=== PATIENT | female | born 1970 | race Caucasian/White ===

== ENCOUNTER 2017-02-12 01:10 | Emergency (ER) | payer OTHER ==
--- NOTE | 2017-02-12 04:11 | ED NURSING NOTES ---
Clinical Report - Nurses [facility] [address] [place] [address] 02/12/2017 1:11 Patient: RAFY MAYERS TRIAGE Triage time 01:19. Acuity: LEVEL 2. Chief Complaint: SORE THROAT, CHEST PAIN and NECK PAIN. Alert. SEPSIS SCREEN: Sepsis Screen. Negative (no infection suspected/documented). ASHKAN COMA SCORE: [place] Coma Scale: 15- eyes open spontaneously (4); best verbal response- oriented x 4 (5); best motor response- obeys commands (6). --01:28 Gurdeep Garcia R.N. 01:17 02/12/17. BP: 160/91. HR: 87. RR: 16. O2 saturation: 100% on room air. Temp: 98.2 F. Pain level now: 10/15. --01:28 Gurdeep Garcia R.N. Weight: 67.1 kg stated. Height/Length: 66 inches Per Patient. BMI: 23.9. --01:25 Gurdeep Garcia R.N. Medications None. --01:23 Gurdeep Garcia R.N. Medication/allergy information source: the patient. --01:28 Gurdeep Garcia R.N. Allergies Codeine. Penicillin. --01:23 Gurdeep Garcia R.N. History Arrived by private vehicle. Historian: patient. Unaccompanied. Primary physician (None). Onset. (Chest pain started 2 night ago, sore throat 1 1/2 weeks ago). ( Patient reports her chest hurt when she went to bed about 24 hrs ago, that still hurt when she woke up that about noon yesterday she took a friends NTG and the pain improved she went back to bed and when she got up 3-4 hrs later the pain had returned). PAST MEDICAL HX: Immunizations: up-to-date. The patient has had a hysterectomy. SOCIAL HX: Current every day light tobacco smoker- less than 1/2 a pack per day. Alcohol use; consumes three liquor weekly. History of occasional drug use: marijuana. No infectious disease exposure. ABUSE ASSESSMENT: No report of abuse. FALL RISK ASSESSMENT: Fall risk assessment completed. No fall risk identified. NUTRITIONAL RISK ASSESSMENT: The nutritional risk assessment revealed no deficiencies. FUNCTIONAL ASSESSMENT: Functional assessment: no impairments noted. LEARNING NEEDS ASSESSMENT: The learning needs assessment revealed no barriers. SKIN INTEGRITY ASSESSMENT: Skin integrity risk assessment completed. No skin integrity risk identified. --01:28 Gurdeep Garcia R.N. PROBLEMS: Corneal Ulcer. Pyelonephritis. TIA - Transient Ischemic Attack. Mental Illness. Suicide Attempt. Suicidal Ideation. Anxiety Reaction. UTI - Urinary Tract Infection. --01:23 Gurdeep Garcia R.N. ADDITIONAL SURGERIES: Appendectomy. Hysterectomy. --01:23 Gurdeep Garcia R.N. Interventions ID band on patient. To treatment room. --01:28 Gurdeep Garcia R.N. PHYSICAL ASSESSMENT 01:21. Ambulatory to room. Patient gowned. GENERAL / NEURO / PSYCH: Alert. Oriented X 4. HEENT: No facial asymmetry noted. Mucous membranes are pink. RESPIRATORY: Respirations not labored. SKIN: Skin intact. Skin is warm and dry. Normal skin turgor. --01:21 Gurdepe Garcia R.N. NURSING PROGRESS NOTES 01:21. Head of bed elevated. Two patient identifiers checked. Call light placed in reach. Bed placed in lowest position. Brakes of bed on. Patient ready for evaluation- chart flagged. --01:21 Gurdeep Garcia R.N. 01:22. EKG time: (0122). --01:22 Gurdeep Garcia R.N. EKG was performed by a tech and shown to the ED physician. --01:22 Gurdeep Garcia R.N. 01:26. electronic device monitor, pulse oximeter and NIBP monitor placed on patient; monitor alarms on. --01:29 Gurdeep Garcia R.N. 01:30 02/12/2017 Aspirin PO 325 mg given. Allergies verified and confirmed 5 rights. --01:32 Gurdeep Garcia R.N. 01:33 02/12/2017 One (1) unsuccessful IV access attempt including the right wrist (by Viviane EDRN). --01:54 Gurdeep Garcia R.N. 01:45 02/12/2017 Site #1 started via IV in the right wrist with an 22g angiocath, with aseptic technique and good blood return; one attempt. Blood drawn: rainbow set. Labeled in the presence of the patient and sent to the lab. Saline lock flushed with 10 mL saline. --01:53 Gurdeep Garcia R.N. Cardiac rhythm: normal sinus rhythm. The patient is calm and resting quietly. RESPIRATORY: No respiratory distress. SKIN: Skin is warm and dry. Skin color within normal limits. --02:53 Gurdeep Garcia R.N. 02:52 02/12/17. BP: 139/71. HR: 85. RR: 16. O2 saturation: 100% on room air. --02:53 Gurdeep Garcia R.N. Cardiac rhythm: normal sinus rhythm. The patient is calm and resting quietly. RESPIRATORY: No respiratory distress. SKIN: Skin is warm and dry. Skin color within normal limits. --03:58 Gurdeep Garcia R.N. 03:57 02/12/17. BP: 137/81. HR: 80. RR: 15. O2 saturation: 97% on room air. --03:58 Gurdeep Garcia R.N. 04:25. The patient is calm and resting quietly. RESPIRATORY: No respiratory distress. SKIN: Skin is warm and dry. Skin color within normal limits. --04:31 Gurdeep Garcia R.N. DISPOSITION / DISCHARGE 04:24 02/12/2017 Site #1 removed upon discharge. Catheter intact. Bandage applied. --04:26 Gurdeep Garcia R.N. Departure time: 04:29. Condition at departure: stable. No learning barriers present. Discharge instructions provided and reviewed with the patient. Reviewed medication(s) side effects, precautions, dosing and course information. Prescription(s) given to the patient. Patient verbalized understanding. Written instructions provided in Chinese. The patient was discharged home. She left the Emergency Department ambulatory and via private vehicle. FALL RISK ASSESSMENT: Fall risk assessment completed. No fall risk identified. --04:29 Gurdeep Garcia R.N. 04:19 07/08/17. BP: 137/83. HR: 83. RR: 15. O2 saturation: 100% on room air. --04:29 Gurdeep Garcia R.N. Locked/Released at 02/12/2017 4:32 by Gurdeep Garcia R.N.
--- NOTE | 2017-02-12 04:11 | ED ORDER SUMMARY ---
..... Patient: RAFY MAYERS OrderSheet [facility] VisitID: [id number] [place] [address] 46y, F Registration Date/Time: 02/12/2017 ORDER SHEET Weight: 67.1 kg (stated) Allergies: Codeine, Penicillin GENERAL ORDERS: Motorman/Woman (Continuous) (CP) (01:30 02/12/2017 JQuivey R.N. per protocol) (1:32 JQuivey R.N.) Cardiac Panel Stat (:02/12/2017 JQuivey R.N. per protocol) (Ack 1:50 CHagerty ER Logistics Operations Manager) (1:53 JQuivey R.N.) EKG - ER Stat (:02/12/2017 JQuivey R.N. per protocol) (1:32 JQuivey R.N.) Pulse oximeter (:02/12/2017 JQuivey R.N. per protocol) (1:32 JQuivey R.N.) Culture, Strep Screen Urgent (02:11 02/12/2017 Eamni Blank) (2:14 CHagerty ER Logistics Operations Manager) MEDICATION ORDERS: Aspirin PO 325 mg (NOW) (01:31 02/12/2017 JQuivey R.N. per protocol) (1:32 JQuivey R.N.) IV FLUIDS: IV Saline Lock (:02/12/2017 JQuivey R.N. per protocol) (1:53 JQuivey R.N.) ORDER SHEET NOTES: [Electronically signed by Gurdeep Garcia R.N. (04:32 02/12/2017)] [Electronically signed by William Noriega Dr. (22:04 02/13/2017)] [Electronically locked/signed by Gurdeep Garcia R.N. (04:02/12/2017)]
--- NOTE | 2017-02-12 04:11 | ED ORDER SUMMARY ---
..... Patient: RAFY MAYERS OrderSheet [facility] VisitID: [id number] [place] [address] 46y, F Registration Date/Time: 02/12/2017 ORDER SHEET Weight: 67.1 kg (stated) Allergies: Codeine, Penicillin GENERAL ORDERS: Pediatric Neuropsychologist (Continuous) (CP) (01:30 02/12/2017 JQuivey R.N. per protocol) (1:32 JQuivey R.N.) Cardiac Panel Stat (:02/12/2017 JQuivey R.N. per protocol) (Ack 1:50 CHagerty ER Adjuster And Inspector) (1:53 JQuivey R.N.) EKG - ER Stat (:02/12/2017 JQuivey R.N. per protocol) (1:32 JQuivey R.N.) Pulse oximeter (:02/12/2017 JQuivey R.N. per protocol) (1:32 JQuivey R.N.) Culture, Strep Screen Urgent (02:11 02/12/2017 Emani Blank) (2:14 CHagerty ER Adjuster And Inspector) MEDICATION ORDERS: Aspirin PO 325 mg (NOW) (01:31 02/12/2017 JQuivey R.N. per protocol) (1:32 JQuivey R.N.) IV FLUIDS: IV Saline Lock (:02/12/2017 JQuivey R.N. per protocol) (1:53 JQuivey R.N.) ORDER SHEET NOTES: [Electronically signed by Gurdeep Garcia R.N. (04:32 02/12/2017)] [Electronically signed by William Noriega Dr. (22:04 02/13/2017)] [Electronically locked/signed by Gurdeep Garcia R.N. (04:02/12/2017)]
--- NOTE | 2017-02-12 04:11 | ED CLINICAL REPORT ---
Clinical Report - Physicians/Mid Levels [facility] [address] [place] [address] 02/12/2017 1:11 Patient: RAFY MAYERS Time Seen: 01:31; initial patient contact. Arrived- By private vehicle. Historian- patient. HISTORY OF PRESENT ILLNESS Chief Complaint: CHEST PAIN. This started about 2 days ago and is still present. It was gradual in onset and has been waxing/waning. The patient cannot recall the circumstances at the onset. It is described as burning and it is described as located in the central chest and left chest area. No radiation. At its maximum, severity described as mild. When seen in the E.D., severity described as mild. Modifying factors- (Worse w/ ROM of LUE). Not relieved by anything. No nausea, vomiting, difficulty breathing or diaphoresis. Similar symptoms previously: None. Recent medical care: Not recently seen/assessed. REVIEW OF SYSTEMS No fever, chills, pedal edema, calf pain or skin rash. She has had a sore throat and a cough. All systems otherwise negative, except as recorded above. PAST HISTORY Corneal Ulcer. Pyelonephritis. TIA - Transient Ischemic Attack. Mental Illness. Suicide Attempt. Suicidal Ideation. Anxiety Reaction. UTI - Urinary Tract Infection. ADDITIONAL SURGERIES: Appendectomy. Hysterectomy. SOCIAL HISTORY Current every day smoker. Occasional alcohol use. History of drug use: marijuana. ADDITIONAL NOTES The nursing notes have been reviewed. PHYSICAL EXAM Vital Signs: 02/12/2017 01:17 BP: 160/91. HR: 87. RR: 16. O2 saturation: 100%. Temp: 98.2 F. Pain level now: 310. Have been reviewed. Hypertensive. Heart rate normal. Respiratory rate normal. Temperature normal. Oxygen saturation normal. Appearance: Alert. Oriented X3. No acute distress. Eyes: Eyes normal inspection. ENT: Pharynx normal. Neck: Normal inspection. Neck supple. CVS: Normal heart rate and rhythm. Heart sounds normal. Respiratory: No respiratory distress. Breath sounds normal. Chest nontender. Skin: Skin warm and dry. Normal skin color. Extremities: No calf tenderness. No lower extremity edema. Neuro: Oriented X 3. LABS, X-RAYS, AND EKG EKG: EKG time: (0122). No acute process. No acute ischemia. Normal EKG. Normal sinus rhythm. Rate: 83. Normal P waves. Normal LEANNE. Normal QRS complex. Normal axis. Normal ST and T waves, QT and QTc. Prior EKG unavailable. The study has been interpreted contemporaneously by me. The study has been independently viewed by me. The EKG appears to be a good tracing. Interpretation time: 0122. Laboratory Tests: CBC w Diff: (ANDREA: 02/12/2017 01:45) ( MsgRcvd 02/12/2017 02:06) Final results Test Result Flag Units (Reference) WHITE BLOOD COUNT 7.9 K/uL (4.5-11.5) RED BLOOD COUNT 4.11 M/uL (4.00-5.20) HEMOGLOBIN 12.3 gm/dL (12.0-16.0) HEMATOCRIT 36.7 % (36.0-46.0) MEAN CELL VOLUME 89 fL (80-100) MEAN CORPUSCULAR HGB 30 pg (26-34) MEAN CORPUSCULAR HGB CONC 34 g/dL (31-37) RED CELL DISTRIBUTION WIDTH 12.4 % (11.6-14.8) PLATELET COUNT 358 K/uL (150-400) NEUTROPHIL % 67.5 % (50-75) LYMPH % 21.1 L % (25-40) MONO % 9.2 % (3-14) EOSINOPHIL % 1.9 % (0-4) BASOPHIL % 0.3 % (0-2) CHEM 13 PANEL: (ANDREA: 02/12/2017 01:45) ( MsgRcvd 02/12/2017 02:20) Final results Test Result Flag Units (Reference) GLUCOSE 122 H mg/dL (70-110) BUN 9 mg/dL (7-18) CREATININE 0.8 mg/dL (0.6-1.3) Estimated GFR >60 mL/min Estimated GFR- >60 mL/min Note: Persistent reduction over 3 months in eGFR<60 mL/min/1.73 m2 defines CKD. Patients with eGFR values>=60 mL/min/1.73 m2 may also have CKD if evidence ofpersistent proteinuria. Additional information may be foundat www.kidney.org. SODIUM 140 mmol/L (136-145) POTASSIUM 3.2 L mmol/L (3.5-5.1) CHLORIDE 103 mmol/L (98-107) CARBON DIOXIDE 26 mmol/L (21-32) CALCIUM 8.5 mg/dL (8.5-10.1) TOTAL PROTEIN 7.8 g/dL (6.4-8.2) ALBUMIN 3.0 L g/dL (3.3-5.0) BILIRUBIN, TOTAL 0.2 mg/dL (0.0-1.0) ALKALINE PHOSPHATASE 104 U/L (46-116) AST (SGOT) 11 L U/L (15-37) ALT (SGPT) 13 U/L (12-78) MAGNESIUM 2.0 mg/dL (1.8-2.4) CPK 85 U/L (24-260) TROPONIN I <0.05 L ng/mL (0.00-1.5) TROPONIN REFERENCE RANGE:<0.1 NEGATIVE0.1-1.5 INDETERMINANT>1.5 POSITIVE Culture, Strep Screen: (ANDREA: 02/12/2017 02:05) ( MsgRcvd 02/12/2017 02:23) Final results Test Result Flag Units (Reference) RAPID STREP SCREEN - THROAT CALLED TO: N/A -- DATE: 02/12/17 NEGATIVE SCREEN: RAPID STREP SCREEN NEGATIVE; CONFIRMATION TO FOLLOW . PROGRESS AND PROCEDURES Disposition: Discharged home in good and improved condition. Condition: good. CLINICAL IMPRESSION Chest wall pain .12 lead EKG performed. Acute viral pharyngitis INSTRUCTIONS Your Current Medications: CONTINUE TAKING THE FOLLOWING MEDICATIONS: None*. Prescription Medications: Diclofenac 50 mg tablets: take 1 tablet orally every 8 hours as needed for pain or stiffness. Dispense thirty (30). No refill. Follow-up: Follow up with your doctor in about three days. Call for an appointment. Screening today revealed the patient's blood pressure to be in the pre-hypertensive range. The patient should follow up with a primary care provider for blood pressure management. (Electronically signed by William Noriega Dr. 02/13/2017 22:04)
--- NOTE | 2017-02-13 22:05 | ED MED RECONCILIATION SUMMARY ---
Patient: RAFY MAYERS Medication Reconciliation Report [facility] VisitID: [id number] [address] [place] [address] 46y, F Registration Date/Time: 02/12/2017 Weight: 67.1 kg Height/Length: 66 in. BMI: 23.9 ALLERGIES: Codeine, Penicillin The patient's Home Medications are listed below: NONE. The source(s) of the original Home Medication information: patient The following Medications were given to the patient in the Emergency Department: Aspirin [PO] PO 325 mg, administered: 02/12/2017 1:30:00 AM The following Medications were prescribed to the patient: Diclofenac 50 mg tablets: take 1 tablet orally every 8 hours as needed for pain or stiffness. Dispense thirty (30). No refill. -- William Noriega Dr.
--- NOTE | 2017-02-13 22:05 | ED MAR SUMMARY ---
..... Medication Administration Record [facility] [address] [place] [address] Patient: RAFY MAYERS Visit ID: [id number] 46y, F Weight: 67.1 kg Height/Length: 66 in BMI: 23.9 ALLERGIES: Codeine, Penicillin Given 01:30 02/12/2017 Gurdeep Garcia REricaNErica Medication Administered: ASPIRIN [PO], Dose: 325 mg PO. Medication Ordered: Aspirin PO 325 mg (NOW).
--- NOTE | 2017-02-13 22:05 | ED MED RECONCILIATION SUMMARY ---
Patient: RAFY MAYERS Medication Reconciliation Report [facility] VisitID: [id number] [address] [place] [address] 46y, F Registration Date/Time: 02/12/2017 Weight: 67.1 kg Height/Length: 66 in. BMI: 23.9 ALLERGIES: Codeine, Penicillin The patient's Home Medications are listed below: NONE. The source(s) of the original Home Medication information: patient The following Medications were given to the patient in the Emergency Department: Aspirin [PO] PO 325 mg, administered: 02/12/2017 1:30:00 AM The following Medications were prescribed to the patient: Diclofenac 50 mg tablets: take 1 tablet orally every 8 hours as needed for pain or stiffness. Dispense thirty (30). No refill. -- William Noriega Dr.
--- NOTE | 2017-02-13 22:05 | ED MAR SUMMARY ---
..... Medication Administration Record [facility] [address] [place] [address] Patient: RAFY MAYERS Visit ID: [id number] 46y, F Weight: 67.1 kg Height/Length: 66 in BMI: 23.9 ALLERGIES: Codeine, Penicillin Given 01:30 02/12/2017 Gurdeep Garcia REricaNErica Medication Administered: ASPIRIN [PO], Dose: 325 mg PO. Medication Ordered: Aspirin PO 325 mg (NOW).
--- NOTE | 2017-02-13 22:05 | ED DISCHARGE INSTRUCTIONS ---
Patient: RAFY MAYERS General Instructions [facility] VisitID: [id number] [place] [address] 46y, F Registration Date/Time: 02/12/2017 Chest wall pain .12 lead EKG performed. Acute viral pharyngitis INSTRUCTIONS Your Current Medications: CONTINUE TAKING THE FOLLOWING MEDICATIONS: None*. Prescription Medications: Diclofenac 50 mg tablets: take 1 tablet orally every 8 hours as needed for pain or stiffness. Dispense thirty (30). No refill. Follow-up: Follow up with your doctor in about three days. Call for an appointment. Screening today revealed the patient's blood pressure to be in the pre-hypertensive range. The patient should follow up with a primary care provider for blood pressure management. ADDITIONAL INFORMATION Chest Strain A strain of the chest is due to stretching and tearing of the muscle fibers between the ribs. This may occur as a result of severe coughing, strenuous lifting or twisting injuries of the upper back. This usually causes increased pain with movement or deep breathing. This may take a few days to a few weeks to heal. Home Care: Rest. Avoid heavy lifting or strenuous exertion. Avoid any activity that causes pain. If you have a severe cough, use a cough syrup such as Robitussin DM (containing dextromethorphan) unless another cough medicine was prescribed. You may use acetaminophen (Tylenol) or ibuprofen (Motrin, Advil) to control pain, unless another medicine was prescribed. [ NOTE: If you have chronic liver or kidney disease or ever had a stomach ulcer or GI bleeding, talk with your doctor before using these medicines.] Follow Up with your doctor as directed. Get Prompt Medical Attention if any of the following occur: A change in the type of pain: if it feels different, becomes more severe, lasts longer, or begins to spread into your shoulder, arm, neck, jaw or back Shortness of breath or increased pain with breathing Cough with dark colored sputum (phlegm) or blood Weakness, dizziness, or fainting Fever of 100.4F (38C) or higher, or as directed by your healthcare provider Viral Pharyngitis (Sore Throat) Your throat pain is due to an infection called "Viral Pharyngitis", commonly known as "Sore Throat". This is a contagious illness. It is spread through the air by coughing, kissing or by touching others after touching your mouth or nose. Symptoms include throat pain worse with swallowing, aching all over, headache and fever. Unlike strep throat, which is a bacterial infection, this illness does not require treatment with an antibiotic. Home Care: If your symptoms are severe, rest at home for the first 2-3 days. Children: Use acetaminophen (Tylenol) for fever, fussiness or discomfort. In infants over six months of age, you may use ibuprofen (Children's Motrin) instead of Tylenol. [NOTE: If your child has chronic liver or kidney disease or ever had a stomach ulcer or GI bleeding, talk with your ferdinand doctor before using these medicines.] (Aspirin should never be used in anyone under 18 years of age who is ill with a fever. It may cause severe liver damage.) Adults: You may use acetaminophen (Tylenol) or ibuprofen (Motrin, Advil) to control pain or fever, unless another medicine was prescribed. [NOTE: If you have chronic liver or kidney disease or ever had a stomach ulcer or GI bleeding, talk with your doctor before using these medicines.] Throat lozenges or sprays (Chloraseptic and others) will reduce pain. Gargling with warm salt water will also reduce throat pain. Dissolve 1/2 teaspoon of salt in 1 glass of warm water. This is especially useful just before meals. Follow Up with your doctor or as directed by our staff if you are not improving over the next week. Get Prompt Medical Attention if any of the following occur: Fever over 100.5F (38.0C) oral, or over 101.5F (38.6C) rectal for more than three days New or worsening ear pain, sinus pain or headache Painful lumps in the back of your neck Unable to swallow liquids or open your mouth wide due to throat pain Trouble breathing or noisy breathing Muffled voice New rash You have been given the following additional information: Chest Wall Strain Pharyngitis, Viral (Electronically signed by William Noriega Dr. 02/13/2017 22:04)
== END 2017-02-12 04:29 | disposition home or self-care (01) ==
LOC: ED SRH 01:10
DX: R07.89 Other chest pain (principal); J02.9 Acute pharyngitis, unspecified; F17.200 Nicotine dependence, unspecified, uncomplicated; Z86.73 Personal history of transient ischemic attack (TIA), and cerebral infarction without residual deficits
CPT/HCPCS: 90100; 90154; 90159; 90616; 90627; 92610; 92720; 95059

== ENCOUNTER 2017-02-13 09:15 | Emergency (ER) | payer OTHER ==
--- NOTE | 2017-02-13 11:29 | DIAGNOSTIC IMAGING REPORT ---
PROCEDURE: CT SOFT TISSUE NECK WITH CONT INDICATION: Sore throat and soft tissue swelling of the right neck. TECHNIQUE: 100 ml of Isovue 300 injected intravenously and axial images were obtained from the skull base through the upper mediastinum with sagittal and coronal reformations. In addition, angled axial oblique images were obtained (avoiding dental hardware). COMPARISON: None. FINDINGS: There is moderate soft tissue swelling of the right faucial tonsil with edema of the parapharyngeal space. This is associated 40% narrowing of the oropharynx. Findings are associated with a 2.5 x 0.5 cm retropharyngeal fusion which extends from mid C2 through C4. In addition, there is moderate mid and upper right cervical adenopathy (posterior triangle, anterior triangle, jugular digastric). The rest of the soft tissues of the neck are normal there is no evidence of abscess. Epiglottis, larynx, and airway are otherwise normal. Parotid glands, submandibular glands, and thyroid gland appear normal. Portions of the sinuses are seen, and are normal. There are moderate degenerative change of the mid cervical spine. IMPRESSION: 1. Moderate enlargement of the right faucial tonsil with right parapharyngeal space edema and retropharyngeal effusion. Findings are compatible with right faucial tonsillitis. No definite evidence of abscess. 2. Associated moderate right cervical adenopathy. 3. Findings discussed with Dr. Melinda Schrader. All CT scans at this facility use dose modulation, iterative reconstruction, and/or weight-based dosing when appropriate to reduce radiation dose to as low as reasonably achievable.
--- NOTE | 2017-02-13 14:00 | ED CLINICAL REPORT ---
Clinical Report - Physicians/Mid Levels [facility] [address] [place] [address] 02/13/2017 9:15 Patient: RAFY MAYERS Time Seen: 09:21. Arrived- By ambulance. Historian- patient and EMS personnel. HISTORY OF PRESENT ILLNESS Chief Complaint: NECK PAIN. It is described as being moderate in degree and in the area of the right side of the cervical spine and radiating to the right shoulder. The quality is noted to be "pain". Onset- about 3 weeks ago and it is still present and now worse. Modifying factors- worsened by rotation of the head to the right or left or neck flexion. Not relieved by anything. No bladder dysfunction, bowel dysfunction, sensory loss or motor loss. Additional history - Pt also c/o sore throat for the past couple of weeks. Patient denies an injury. No other injury. Similar symptoms previously: None. Recent medical care: The patient was seen recently at this facility in the emergency department. ( Pt was seen yesterday and evaluated for CP.). REVIEW OF SYSTEMS No fever, chills, eye discomfort, headache or cough. No difficulty breathing, chest pain, skin rash, abdominal pain or nausea. No vomiting, diarrhea, black stools, difficulty with urination or urinary frequency. No hematuria or bloody stools. The patient has had a sore throat. All systems otherwise negative, except as recorded above. PAST HISTORY Problems: Corneal Ulcer. Pyelonephritis. TIA - Transient Ischemic Attack. Lifestyle / Substance Problems. Mental Illness. Suicide Attempt. Immunizations. LNMP - Last Normal Menstrual Period. Additional Surgeries: Appendectomy. Hysterectomy. Medications: None. Allergies: Codeine. Penicillin. SOCIAL HISTORY Smoker- current status unknown. Alcohol use. History of drug use. ADDITIONAL NOTES The nursing notes have been reviewed. PHYSICAL EXAM Vital Signs: 02/13/2017 09:19 BP: 139/78. HR: 81. RR: 20. O2 saturation: 99%. Temp: 98.3 F. Have been reviewed. Appearance: Alert. No acute distress. (Pt appears moderately uncomfortable.). Eyes: Pupils equal, round and reactive to light. ENT: (Pt has a markedly enlarged R tonsil, but no peritonsillar inflammation or swelling.). Neck: Decrease in ROM. (Pt has a firm soft tissue mass at the R neck base.). CVS: Normal heart rate and rhythm. Heart sounds normal. Pulses normal. Respiratory: No respiratory distress. Breath sounds normal. Abdomen: Normal inspection. Soft and nontender. Back: Normal inspection. No tenderness. Painless ROM. Skin: Skin warm and dry. Normal skin color. No rash. Normal skin turgor. Extremities: Extremities exhibit normal ROM. Extremities nontender. Neuro: Oriented X 3. Mood/affect normal. No motor deficit. No sensory deficit. LABS, X-RAYS, AND EKG CT Neck - Soft Tissue: Adenopathy present. Normal epiglottis, sub-glottic space and pre-vertebral space. No mass, soft tissue air or foreign body. No fracture, subluxation or bony lesion. (enlarged right tonsil, with fluid in the retropharyngeal space.). Neck CT (soft tissue) performed with contrast. The study was independently viewed by me, interpreted by the radiologist and contemporaneously by me and discussed with the radiologist. Prior studies were not available for comparison. Pulse Oximetry: 02/13/2017 09:19 O2 saturation: 99%. (FIO2 - room air). Interpretation: normal. PROGRESS AND PROCEDURES Course of Care: PT was treated symptomatically with IV Toradol. She was worked up with a monoscreen, CBC, and CT neck. It was found that the patient's throat culture from her recent visit actually had turned out to be positive for strep, and patient's CT scan showed findings consistent with tonsillitis. Patient was given IV fluids, Solu-Medrol, Rocephin, Toradol, and Dilaudid, with improvement in symptoms. I discussed her case with ENT specialist production tester, who agreed with the management given in the emergency department, and stated that based on the CT results and the report of the patient's condition, the patient could follow up in clinic with him in the next 2 days. Patient was found be feeling much better on reevaluation and she is stable for discharge home. Patient counseled in person regarding the patient's stable condition, test results, diagnosis and need for follow-up. Concerns were addressed. Old medical records reviewed. Disposition: Condition: stable and improved. CLINICAL IMPRESSION Acute streptococcal pharyngitis Acute streptococcal tonsillitis. INSTRUCTIONS Warnings: SEDATIVE MEDICATION: You were given sedative medication during your visit. Do not drive or operate dangerous machinery for 6 hours. GENERAL WARNINGS: Return or contact your physician immediately if your condition worsens or changes unexpectedly, if not improving as expected, or if other problems arise. Prescription Medications: Hydrocodone / APAP Liquid 7.5mg/325mg/15 mL: take five (5) mL orally every 6 hours as needed for pain. Dispense seventy-five (75) mL. No refill. Clindamycin 300 mg: take 1 capsule orally every 6 hours for 10 days. No refill. Prednisone 20 mg: take 3 orally every day for 5 days. Dispense sufficient quantity. No refills. Prednisone 10 mg tablets: take 4 tablets every day for 3 days ; then take 2 tablets every day for 3 days ; then take 1 tablet every day for 2 days. Dispense sufficient quantity. No refills. Understanding of the discharge instructions verbalized by patient. Follow-up with: Yovany Harvey MD, ENT, , [address] [place], [place] [id number]; Yovany Arteaga MD, ENT, , [facility], [address] [place] [address] Follow up. Call for an appointment. Reason for referral: Follow up ER visit for tonsillitis. Dr. Arteaga would like you to be seen tomorrow (Tuesday) in [place], or Tuesday at the [place] [facility]. (Electronically signed by Melinda Schrader MD 02/14/2017 23:30)
--- NOTE | 2017-02-13 14:00 | ED CLINICAL REPORT ---
Clinical Report - Physicians/Mid Levels [facility] [address] [place] [address] 02/13/2017 9:15 Patient: RAFY MAYERS Time Seen: 09:21. Arrived- By ambulance. Historian- patient and EMS personnel. HISTORY OF PRESENT ILLNESS Chief Complaint: NECK PAIN. It is described as being moderate in degree and in the area of the right side of the cervical spine and radiating to the right shoulder. The quality is noted to be "pain". Onset- about 3 weeks ago and it is still present and now worse. Modifying factors- worsened by rotation of the head to the right or left or neck flexion. Not relieved by anything. No bladder dysfunction, bowel dysfunction, sensory loss or motor loss. Additional history - Pt also c/o sore throat for the past couple of weeks. Patient denies an injury. No other injury. Similar symptoms previously: None. Recent medical care: The patient was seen recently at this facility in the emergency department. ( Pt was seen yesterday and evaluated for CP.). REVIEW OF SYSTEMS No fever, chills, eye discomfort, headache or cough. No difficulty breathing, chest pain, skin rash, abdominal pain or nausea. No vomiting, diarrhea, black stools, difficulty with urination or urinary frequency. No hematuria or bloody stools. The patient has had a sore throat. All systems otherwise negative, except as recorded above. PAST HISTORY Problems: Corneal Ulcer. Pyelonephritis. TIA - Transient Ischemic Attack. Lifestyle / Substance Problems. Mental Illness. Suicide Attempt. Immunizations. LNMP - Last Normal Menstrual Period. Additional Surgeries: Appendectomy. Hysterectomy. Medications: None. Allergies: Codeine. Penicillin. SOCIAL HISTORY Smoker- current status unknown. Alcohol use. History of drug use. ADDITIONAL NOTES The nursing notes have been reviewed. PHYSICAL EXAM Vital Signs: 02/13/2017 09:19 BP: 139/78. HR: 81. RR: 20. O2 saturation: 99%. Temp: 98.3 F. Have been reviewed. Appearance: Alert. No acute distress. (Pt appears moderately uncomfortable.). Eyes: Pupils equal, round and reactive to light. ENT: (Pt has a markedly enlarged R tonsil, but no peritonsillar inflammation or swelling.). Neck: Decrease in ROM. (Pt has a firm soft tissue mass at the R neck base.). CVS: Normal heart rate and rhythm. Heart sounds normal. Pulses normal. Respiratory: No respiratory distress. Breath sounds normal. Abdomen: Normal inspection. Soft and nontender. Back: Normal inspection. No tenderness. Painless ROM. Skin: Skin warm and dry. Normal skin color. No rash. Normal skin turgor. Extremities: Extremities exhibit normal ROM. Extremities nontender. Neuro: Oriented X 3. Mood/affect normal. No motor deficit. No sensory deficit. LABS, X-RAYS, AND EKG CT Neck - Soft Tissue: Adenopathy present. Normal epiglottis, sub-glottic space and pre-vertebral space. No mass, soft tissue air or foreign body. No fracture, subluxation or bony lesion. (enlarged right tonsil, with fluid in the retropharyngeal space.). Neck CT (soft tissue) performed with contrast. The study was independently viewed by me, interpreted by the radiologist and contemporaneously by me and discussed with the radiologist. Prior studies were not available for comparison. Pulse Oximetry: 02/13/2017 09:19 O2 saturation: 99%. (FIO2 - room air). Interpretation: normal. PROGRESS AND PROCEDURES Course of Care: PT was treated symptomatically with IV Toradol. She was worked up with a monoscreen, CBC, and CT neck. It was found that the patient's throat culture from her recent visit actually had turned out to be positive for strep, and patient's CT scan showed findings consistent with tonsillitis. Patient was given IV fluids, Solu-Medrol, Rocephin, Toradol, and Dilaudid, with improvement in symptoms. I discussed her case with ENT specialist director of medical education, who agreed with the management given in the emergency department, and stated that based on the CT results and the report of the patient's condition, the patient could follow up in clinic with him in the next 2 days. Patient was found be feeling much better on reevaluation and she is stable for discharge home. Patient counseled in person regarding the patient's stable condition, test results, diagnosis and need for follow-up. Concerns were addressed. Old medical records reviewed. Disposition: Condition: stable and improved. CLINICAL IMPRESSION Acute streptococcal pharyngitis Acute streptococcal tonsillitis. INSTRUCTIONS Warnings: SEDATIVE MEDICATION: You were given sedative medication during your visit. Do not drive or operate dangerous machinery for 6 hours. GENERAL WARNINGS: Return or contact your physician immediately if your condition worsens or changes unexpectedly, if not improving as expected, or if other problems arise. Prescription Medications: Hydrocodone / APAP Liquid 7.5mg/325mg/15 mL: take five (5) mL orally every 6 hours as needed for pain. Dispense seventy-five (75) mL. No refill. Clindamycin 300 mg: take 1 capsule orally every 6 hours for 10 days. No refill. Prednisone 20 mg: take 3 orally every day for 5 days. Dispense sufficient quantity. No refills. Prednisone 10 mg tablets: take 4 tablets every day for 3 days ; then take 2 tablets every day for 3 days ; then take 1 tablet every day for 2 days. Dispense sufficient quantity. No refills. Understanding of the discharge instructions verbalized by patient. Follow-up with: Yovany Harvey MD, ENT, , [address] [place], [place] [id number]; Yovany Arteaga MD, ENT, , [facility], [address] [place] [address] Follow up. Call for an appointment. Reason for referral: Follow up ER visit for tonsillitis. Dr. Arteaga would like you to be seen tomorrow (Tuesday) in [place], or Tuesday at the [place] [facility]. (Electronically signed by Melinda Schrader MD 02/14/2017 23:30)
--- NOTE | 2017-02-13 14:00 | ED ORDER SUMMARY ---
..... Patient: RAFY MAYERS OrderSheet [facility] VisitID: [id number] [place] [address] 46y, F Registration Date/Time: 02/13/2017 ORDER SHEET Weight: 63.5 kg (stated) Allergies: Codeine, Penicillin GENERAL ORDERS: CT Soft Tissue Neck w Cont (No) (N/A) Urgent (09:58 02/13/2017 Guerda AMES) (Ack 10:00 KHoerner) (11:05 KHoerner) Monoscreen Urgent (09:59 02/13/2017 Guerda AMES) (Ack 10:00 KHoerner) (11:06 KHoerner) CBC w Diff Urgent (09:02/13/2017 Guerda AMES) (Ack 10:00 KHoerner) (11:06 KHoerner) MEDICATION ORDERS: IV FLUIDS: IV NS : initial bolus 1000 mL (1000 mL/hr), then none - (NOW) (09:02/13/2017 Guerda AMES) (10:12 LWhalen R.N.) Toradol IV 30 mg (NOW) (:02/13/2017 Guerda AMES) (10:14 LWhalen R.N.) Rocephin IV 2 gm/50mL (NOW) (11:16 02/13/2017 Guerda AMES) (Ack 11:34 LAbe R.N.) (11:48 LAbe R.N.) Clindamycin IV 900 mg/50mL (NOW) (11:02/13/2017 Guerda AMES) (Ack 11:34 LAbe R.N.) (11:59 LAbe R.N.) Solu-MEDROL IV 125 mg (NOW) (11:02/13/2017 Guerda AMES) (Ack 11:34 LAbe R.N.) (11:47 LAbe R.N.) Dilaudid IV 1 mg (HIGH ALERT MEDICATION, NOW) (:02/13/2017 Guerda AMES) (Ack 11:34 LAbe R.N.) (11:48 LAbe R.N.) ORDER SHEET NOTES: [Electronically signed by Abdiel Ludwig R.N. (14:56 02/13/2017)] [Electronically signed by Melinda Schrader MD (23:30 02/14/2017)] [Electronically locked/signed by Abdiel Ludwig R.N. (14:56 02/13/2017)]
--- NOTE | 2017-02-13 14:00 | ED NURSING NOTES ---
Clinical Report - Nurses [facility] [address] [place] [address] 02/13/2017 9:15 Patient: RAFY MAYERS TRIAGE Triage time 09:Feb 13 2017. Acuity: LEVEL 3. Chief Complaint: NECK PAIN. YESENIA COMA SCORE: Yesenia Coma Scale: 15- eyes open spontaneously (4); best verbal response- oriented x 4 (5); best motor response- obeys commands (6). --09:24 Abdiel Ludwig R.N. 09:19 02/13/17. BP: 139/78. HR: 81. RR: 20. O2 saturation: 99%. Temp: 98.3 F. Pain level now 8/10. --09:24 Abdiel Ludwig R.N. Weight: 63.5 kg stated. Height/Length: 66 inches Per Patient. BMI: 22.6. --09:22 Abdiel Ludwig R.N. Medications None. --09:23 Abdiel Ludwig R.N. Allergies Codeine. Penicillin. --09:23 Abdiel Ludwig R.N. History Arrived by EMS. Historian: patient. This started last night. ( Patient states has a lump on the right side of her neck and it grew overnight but now she can't move her neck to the right side. Has had a sore throat strep negative.). No history of recent trauma. PAST MEDICAL HX: The patient has had a hysterectomy. SOCIAL HX: Current every day light tobacco smoker (cigarette)- less than 1/2 a pack per day. Regular alcohol use; consumes liquor weekly. History of drug use: marijuana. SELF HARM ASSESSMENT: A self harm assessment was performed. The patient answered "no" to the question "Have you recently felt down, depressed, or hopeless?" and "Do you have thoughts of harming or killing yourself?". FALL RISK ASSESSMENT: Fall risk assessment completed. No fall risk identified. NUTRITIONAL RISK ASSESSMENT: The nutritional risk assessment revealed no deficiencies. FUNCTIONAL ASSESSMENT: Functional assessment: no impairments noted. LEARNING NEEDS ASSESSMENT: The learning needs assessment revealed no barriers. ABUSE ASSESSMENT: Abuse assessment: (yes) The patient was asked "Do you feel safe in your home?". SKIN INTEGRITY ASSESSMENT: Skin integrity risk assessment completed. No skin integrity risk identified. --:24 Abdiel Ludwig R.N. PROBLEMS: Pharyngitis. Chest Wall Pain. Corneal Ulcer. Pyelonephritis. TIA - Transient Ischemic Attack. Lifestyle / Substance Problems. Mental Illness. Suicide Attempt. Drug Poisoning. Back Pain. Anxiety Reaction. URI. UTI - Urinary Tract Infection. Immunizations. LNMP - Last Normal Menstrual Period. Acute Pain. --: Abdiel Ludwig R.N. The following entry was modified by Melinda Schrader MD, 09:51 Reason - duplicate <<STRICKEN ENTRY-- Suicidal Ideation. --09:50 Melinda Schrader MD --END STRIKE>>. ADDITIONAL SURGERIES: Appendectomy. Hysterectomy. --: Abdiel Ludwig R.N. Interventions ID band on patient. --:24 Abdiel Ludwig R.N. PHYSICAL ASSESSMENT GENERAL / NEURO / PSYCH: Alert. Oriented X 4. Appears in no acute distress. RESPIRATORY: Respirations not labored. Chest nontender. Breath sounds within normal limits. CVS: Normal heart rate and rhythm. Capillary refill less than 2 seconds. GI / : Abdomen soft and nontender. Bowel sounds within normal limits. EXTREMITIES: Sensation intact in extremities. ROM of extremities within normal limits. BACK: Limited ROM of the neck. Soft tissue tenderness. --: Abdiel Ludwig R.N. NURSING PROGRESS NOTES The plan of care for this patient has been created. Pulse oximeter and NIBP monitor placed on patient. Cold pack applied. Head of bed elevated 45 degrees. Reassurance given. Call light placed in reach. Side rails up x 1. Bed placed in lowest position. Brakes of bed on. --09:25 Abdiel Ludwig R.N. 10:07 02/13/2017 Site #1 started via IV in the left hand with an 22g angiocath, with aseptic technique and good blood return; one attempt. Saline lock flushed with 10 mL saline. --10:12 Abdiel Ludwig R.N. 10:12 02/13/2017 Started bag #1 1000 mL IV Fluids IV NS (Saline); at 1000 mL/hr over 1 hour(s) via site #1 via IV pump. Allergies verified and confirmed 5 rights. IV patency established. IV site checked: no pain, redness, or swelling. IV flushed thoroughly pre- and post-medication administration. --10:12 Abdiel Ludwig R.N. 10:14 02/13/2017 Toradol IVP 30 mg given over 2 minute(s) via site #1. Allergies verified and confirmed 5 rights. IV patency established. IV site checked: no pain, redness, or swelling. IV flushed thoroughly pre- and post-medication administration. --10:14 Abdiel Ludwig R.N. 11:42 02/13/2017 SOLU-MEDROL (MethylPREDNISolone Sodium Succ) IVP 125 mg given. via site #1. Allergies verified and confirmed 5 rights. IV patency established. IV site checked: no pain, redness, or swelling. IV flushed thoroughly pre- and post-medication administration. IVP given by RN. --11:47 Samantha Cespedes R.N. 11:48 02/13/2017 Dilaudid (HYDROmorphone HCl PF) IVP 1 mg given. via site #1. Allergies verified, confirmed 5 rights and sedative warning given to the patient. IV patency established. IV site checked: no pain, redness, or swelling. IV flushed thoroughly pre- and post-medication administration. IVP given by RN. --11:48 Samantha Cespedes R.N. 11:48 02/13/2017 Started 2 gm of Rocephin (CefTRIAXone Sodium) IVPB in bag #1 50 mL; at 100 mL/hr over 30 minute(s) via site #1; Allergies verified and confirmed 5 rights. IV patency established. IV site checked: no pain, redness, or swelling. IV flushed thoroughly pre- and post-medication administration. --11:49 Samantha Cespedes R.N. 11:52 02/13/17. BP: 125/67. HR: 78. RR: 16. O2 saturation: 97%. Temp: 98 F. Pain level now 0/10. --11:53 Samantha Cespedes R.N. The patient reports no complaints and she is resting quietly. ( patient states pain is controlled as long as she isn't moving). --11:53 Samantha Cespedes R.N. 11:59 02/13/2017 Started 900 mg of Clindamycin IVPB in bag #1 50 mL; at 100 mL/hr over 30 minute(s) via site #1; Allergies verified and confirmed 5 rights. IV patency established. IV site checked: no pain, redness, or swelling. IV flushed thoroughly pre- and post-medication administration. --11:59 Samantha Cespedes R.N. 12:15 02/13/2017 Rocephin IVPB Discontinued: bag #1 infused upon arrival. Total amount infused: 50 mL. IV patency established. IV site checked: no pain, redness, or swelling. IV flushed thoroughly. --12:24 Samantha Cespedes R.N. 12:24 02/13/2017 Clindamycin IVPB Discontinued: bag #1 infused upon arrival. Total amount infused: 50 mL. IV patency established. IV site checked: no pain, redness, or swelling. IV flushed thoroughly. --12:24 Samantha Cespedes R.N. 12:27 02/13/17. BP: 117/66. HR: 78. RR: 16. O2 saturation: 96%. --12:27 Say Trevino, Tech1 14:00 02/13/17. BP: 120/70. HR: 84. RR: 18. O2 saturation: 96%. 13:30 02/13/17. BP: 111/62. HR: 84. RR: 18. O2 saturation: 98%. 13:00 02/13/17. BP: 113/57. HR: 84. RR: 16. O2 saturation: 96%. --14:23 Abdiel Ludwig R.N. 14:23 02/13/17. BP: 114/69. HR: 80. RR: 16. O2 saturation: 98%. Temp: 98.6 F. Pain level now 0/10. --14:24 Abdiel Ludwig R.N. DISPOSITION / DISCHARGE 11:30 02/13/2017 IV Fluids IV NS Discontinued: bag #1 infused. Total amount infused: 1000 mL. IV patency established. IV site checked: no pain, redness, or swelling. IV flushed thoroughly. --14:55 Abdiel Ludwig R.N. 14:39 02/13/2017 Site #1 removed upon discharge. Catheter intact. Pressure dressing applied. --14:54 Abdiel Ludwig R.N. Departure time: 14:56 Feb 13 2017. Condition at departure: improved. No learning barriers present. Discharge instructions provided and reviewed with the patient. Reviewed warnings. Reviewed medication(s). Treatments reviewed. Reviewed referrals. Patient verbalized understanding. Written instructions provided in Turkish. The patient was discharged by the physician. She was discharged home and accompanied by chemist helper. She left the Emergency Department ambulatory and via private vehicle. Preparation Plant Supervisor driving. --14:56 Abdiel Ludwig R.N. 14:23 02/13/17. BP: 114/69. HR: 80. RR: 16. O2 saturation: 98%. Temp: 98.6 F. Pain level now 0/10. --14:56 Abdiel Ludwig R.N. Locked/Released at 02/13/2017 14:56 by Abdiel Ludwig R.N.
--- NOTE | 2017-02-13 14:00 | ED ORDER SUMMARY ---
..... Patient: RAFY MAYERS OrderSheet [facility] VisitID: [id number] [place] [address] 46y, F Registration Date/Time: 02/13/2017 ORDER SHEET Weight: 63.5 kg (stated) Allergies: Codeine, Penicillin GENERAL ORDERS: CT Soft Tissue Neck w Cont (No) (N/A) Urgent (09:58 02/13/2017 Guerda AMES) (Ack 10:00 KHoerner) (11:05 KHoerner) Monoscreen Urgent (09:59 02/13/2017 Guerda AMES) (Ack 10:00 KHoerner) (11:06 KHoerner) CBC w Diff Urgent (09:02/13/2017 Guerda AMES) (Ack 10:00 KHoerner) (11:06 KHoerner) MEDICATION ORDERS: IV FLUIDS: IV NS : initial bolus 1000 mL (1000 mL/hr), then none - (NOW) (09:02/13/2017 Guerda AMES) (10:12 LWhalen R.N.) Toradol IV 30 mg (NOW) (:02/13/2017 Guerda AMES) (10:14 LWhalen R.N.) Rocephin IV 2 gm/50mL (NOW) (11:16 02/13/2017 Guerda AMES) (Ack 11:34 LAbe R.N.) (11:48 LAbe R.N.) Clindamycin IV 900 mg/50mL (NOW) (11:02/13/2017 Guerda AMES) (Ack 11:34 LAbe R.N.) (11:59 LAbe R.N.) Solu-MEDROL IV 125 mg (NOW) (11:02/13/2017 Guerda AMES) (Ack 11:34 LAbe R.N.) (11:47 LAbe R.N.) Dilaudid IV 1 mg (HIGH ALERT MEDICATION, NOW) (:02/13/2017 Guerda AMES) (Ack 11:34 LAbe R.N.) (11:48 LAbe R.N.) ORDER SHEET NOTES: [Electronically signed by Abdiel Ludwig R.N. (14:56 02/13/2017)] [Electronically signed by Melinda Schrader MD (23:30 02/14/2017)] [Electronically locked/signed by Abdiel Ludwig R.N. (14:56 02/13/2017)]
--- NOTE | 2017-02-14 23:31 | ED DISCHARGE INSTRUCTIONS ---
Patient: RAFY MAYERS General Instructions [facility] VisitID: [id number] [address] [place] [address] 46y, F Registration Date/Time: 02/13/2017 Acute streptococcal pharyngitis Acute streptococcal tonsillitis. INSTRUCTIONS Warnings: SEDATIVE MEDICATION: You were given sedative medication during your visit. Do not drive or operate dangerous machinery for 6 hours. GENERAL WARNINGS: Return or contact your physician immediately if your condition worsens or changes unexpectedly, if not improving as expected, or if other problems arise. Prescription Medications: Hydrocodone / APAP Liquid 7.5mg/325mg/15 mL: take five (5) mL orally every 6 hours as needed for pain. Dispense seventy-five (75) mL. No refill. Clindamycin 300 mg: take 1 capsule orally every 6 hours for 10 days. No refill. Prednisone 20 mg: take 3 orally every day for 5 days. Dispense sufficient quantity. No refills. Prednisone 10 mg tablets: take 4 tablets every day for 3 days ; then take 2 tablets every day for 3 days ; then take 1 tablet every day for 2 days. Dispense sufficient quantity. No refills. Understanding of the discharge instructions verbalized by patient. Follow-up with: Yovany Harvey MD, ENT, , [address] [place] [address]; Yovany Arteaga MD, ENT, , [facility], [address] [place] [address] Follow up. Call for an appointment. Reason for referral: Follow up ER visit for tonsillitis. Dr. Arteaga would like you to be seen tomorrow (Tuesday) in [place], or Tuesday at the [facility]. ADDITIONAL INFORMATION Pharyngitis: Strep [Confirmed] Your test for strep throat was positive. Strep throat is a contagious illness. It is spread by coughing, kissing or by touching others after touching your mouth or nose. Symptoms include throat pain which is worse with swallowing, aching all over, headache and fever. You will be treated with an antibiotic which should make you start to feel better within 1-2 days. Home Care: Rest at home and drink plenty of fluids to avoid dehydration. No school or work for the first two days on antibiotics. You will not be contagious after this time and if you are feeling better, you can return to school or work. Take your antibiotics for a full 10 days, even if you feel better after the first few days of treatment. This is very important to prevent heart or kidney disease that can result as a complication of untreated strep throat infection. Children: Use acetaminophen (Tylenol) for fever, fussiness or discomfort. In infants over six months of age, you may use ibuprofen (Children's Motrin) instead of Tylenol. [NOTE: If your child has chronic liver or kidney disease or ever had a stomach ulcer or GI bleeding, talk with your doctor before using these medicines.] (Aspirin should never be used in anyone under 18 years of age who is ill with a fever. It may cause severe liver damage.)Adults: You may use acetaminophen (Tylenol) or ibuprofen (Motrin, Advil) to control pain or fever, unless another medicine was prescribed for this. [NOTE: If you have chronic liver or kidney disease or ever had a stomach ulcer or GI bleeding, talk with your doctor before using these medicines.] Throat lozenges or sprays (Chloraseptic and others) will reduce pain. Gargling with warm salt water will also reduce throat pain. Dissolve 1/2 teaspoon of salt in 1 glass of warm water. This is especially useful just before meals. Follow Up with your doctor or as directed by our staff if you are not improving over the next week. Get Prompt Medical Attention if any of the following occur: Fever of 100.4F (38C) oral or higher, not better with fever medication New or worsening ear pain, sinus pain or headache Painful lumps in the back of your neck Unable to swallow liquids or open your mouth wide due to throat pain Trouble breathing or noisy breathing Muffled voice New rash You have been given the following additional information: Pharyngitis, Strep (Confirmed) (Electronically signed by Melinda Schrader MD 02/14/2017 23:30)
--- NOTE | 2017-02-14 23:31 | ED MED RECONCILIATION SUMMARY ---
Patient: RAFY MAYERS Medication Reconciliation Report [facility] VisitID: [id number] [place] [address] 46y, F Registration Date/Time: 02/13/2017 Weight: 63.5 kg Height/Length: 66 in. BMI: 22.6 ALLERGIES: Codeine, Penicillin The patient's Home Medications are listed below: NONE. The source(s) of the original Home Medication information: Not obtained. The following Medications were given to the patient in the Emergency Department: IV NS IV Fluids bolus 0, then 1000 mL/hr, administered: 02/13/2017 10:12:00 AM Toradol [IVP] IVP 30 mg, administered: 02/13/2017 10:14:00 AM SOLU-MEDROL [IVP] IVP 125 mg, administered: 02/13/2017 11:42:00 AM Dilaudid [IVP] IVP 1 mg, administered: 02/13/2017 11:48:00 AM Rocephin [IVPB] IVPB bolus 0, then 2 gm 100 mL/hr, administered: 02/13/2017 11:48:00 AM Clindamycin [IVPB] IVPB bolus 0, then 900 mg 100 mL/hr, administered: 02/13/2017 11:59:00 AM The following Medications were prescribed to the patient: Hydrocodone / APAP Liquid 7.5mg/325mg/15 mL: take five (5) mL orally every 6 hours as needed for pain. Dispense seventy-five (75) mL. No refill. -- Melinda Schrader MD Clindamycin 300 mg: take 1 capsule orally every 6 hours for 10 days. No refill. -- Melinda Schrader MD Prednisone 20 mg: take 3 orally every day for 5 days. Dispense sufficient quantity. No refills. -- Melinda Schrader MD Prednisone 10 mg tablets: take 4 tablets every day for 3 days ; then take 2 tablets every day for 3 days ; then take 1 tablet every day for 2 days. Dispense sufficient quantity. No refills. -- Melinda Schrader MD
--- NOTE | 2017-02-14 23:31 | ED MAR SUMMARY ---
..... Medication Administration Record [facility] [address] [place] [address] Patient: RAFY MAYERS Visit ID: [id number] 46y, F Weight: 63.5 kg Height/Length: 66 in BMI: 22.6 ALLERGIES: Codeine, Penicillin Start 10:12 02/13/2017 Abdiel Ludwig R.N., Stop 11:30 02/13/2017 Abdiel Ludwig R.N. Medication Administered: IV NS (SALINE), Dose: IV Fluids over 1 hour(s), Rate: 1000 mL/hr, Dispensed: 1000 mL bag, Site: #1 left hand. Medication Ordered: IV NS : initial bolus 1000 mL (1000 mL/hr), then none - (NOW). Given 10:14 02/13/2017 Abdiel Ludwig R.N. Medication Administered: TORADOL [IVP], Dose: 30 mg IVP over 2 minute(s), Site: #1 left hand. Medication Ordered: Toradol IV 30 mg (NOW). Given 11:42 02/13/2017 Samantha Cespedes R.N. Medication Administered: SOLU-MEDROL [IVP] (METHYLPREDNISOLONE SODIUM SUCC), Dose: 125 mg IVP, Site: #1 left hand. Medication Ordered: Solu-MEDROL IV 125 mg (NOW). Given 11:48 02/13/2017 Samantha Cespedes R.N. Medication Administered: DILAUDID [IVP] (HYDROMORPHONE HCL PF), Dose: 1 mg IVP, Site: #1 left hand. Medication Ordered: Dilaudid IV 1 mg (HIGH ALERT MEDICATION, NOW). Start 11:48 02/13/2017 Samantha Cespedes R.N., Stop 12:15 02/13/2017 Samantha Cespedes R.N. Medication Administered: ROCEPHIN [IVPB] (CEFTRIAXONE SODIUM), Dose: 2 gm IVPB over 30 minute(s), Rate: 100 mL/hr, Dispensed: 50 mL bag, Site: #1 left hand. Medication Ordered: Rocephin IV 2 gm/50mL (NOW). Start 11:59 02/13/2017 Samantha Cespedes R.N., Stop 12:24 02/13/2017 Samantha Cespedes R.N. Medication Administered: CLINDAMYCIN [IVPB], Dose: 900 mg IVPB over 30 minute(s), Rate: 100 mL/hr, Dispensed: 50 mL bag, Site: #1 left hand. Medication Ordered: Clindamycin IV 900 mg/50mL (NOW).
--- NOTE | 2017-02-14 23:31 | ED MAR SUMMARY ---
..... Medication Administration Record [facility] [address] [place] [address] Patient: RAFY MAYERS Visit ID: [id number] 46y, F Weight: 63.5 kg Height/Length: 66 in BMI: 22.6 ALLERGIES: Codeine, Penicillin Start 10:12 02/13/2017 Abdiel Ludwig R.N., Stop 11:30 02/13/2017 Abdiel Ludwig R.N. Medication Administered: IV NS (SALINE), Dose: IV Fluids over 1 hour(s), Rate: 1000 mL/hr, Dispensed: 1000 mL bag, Site: #1 left hand. Medication Ordered: IV NS : initial bolus 1000 mL (1000 mL/hr), then none - (NOW). Given 10:14 02/13/2017 Abdiel Ludwig R.N. Medication Administered: TORADOL [IVP], Dose: 30 mg IVP over 2 minute(s), Site: #1 left hand. Medication Ordered: Toradol IV 30 mg (NOW). Given 11:42 02/13/2017 Samantha Cespedes R.N. Medication Administered: SOLU-MEDROL [IVP] (METHYLPREDNISOLONE SODIUM SUCC), Dose: 125 mg IVP, Site: #1 left hand. Medication Ordered: Solu-MEDROL IV 125 mg (NOW). Given 11:48 02/13/2017 Samantha Cespedes R.N. Medication Administered: DILAUDID [IVP] (HYDROMORPHONE HCL PF), Dose: 1 mg IVP, Site: #1 left hand. Medication Ordered: Dilaudid IV 1 mg (HIGH ALERT MEDICATION, NOW). Start 11:48 02/13/2017 Samantha Cespedes R.N., Stop 12:15 02/13/2017 Samantha Cespedes R.N. Medication Administered: ROCEPHIN [IVPB] (CEFTRIAXONE SODIUM), Dose: 2 gm IVPB over 30 minute(s), Rate: 100 mL/hr, Dispensed: 50 mL bag, Site: #1 left hand. Medication Ordered: Rocephin IV 2 gm/50mL (NOW). Start 11:59 02/13/2017 Samantha Cespedes R.N., Stop 12:24 02/13/2017 Samantha Cespedes R.N. Medication Administered: CLINDAMYCIN [IVPB], Dose: 900 mg IVPB over 30 minute(s), Rate: 100 mL/hr, Dispensed: 50 mL bag, Site: #1 left hand. Medication Ordered: Clindamycin IV 900 mg/50mL (NOW).
--- NOTE | 2017-02-14 23:31 | ED DISCHARGE INSTRUCTIONS ---
Patient: RAFY MAYERS General Instructions [facility] VisitID: [id number] [address] [place] [address] 46y, F Registration Date/Time: 02/13/2017 Acute streptococcal pharyngitis Acute streptococcal tonsillitis. INSTRUCTIONS Warnings: SEDATIVE MEDICATION: You were given sedative medication during your visit. Do not drive or operate dangerous machinery for 6 hours. GENERAL WARNINGS: Return or contact your physician immediately if your condition worsens or changes unexpectedly, if not improving as expected, or if other problems arise. Prescription Medications: Hydrocodone / APAP Liquid 7.5mg/325mg/15 mL: take five (5) mL orally every 6 hours as needed for pain. Dispense seventy-five (75) mL. No refill. Clindamycin 300 mg: take 1 capsule orally every 6 hours for 10 days. No refill. Prednisone 20 mg: take 3 orally every day for 5 days. Dispense sufficient quantity. No refills. Prednisone 10 mg tablets: take 4 tablets every day for 3 days ; then take 2 tablets every day for 3 days ; then take 1 tablet every day for 2 days. Dispense sufficient quantity. No refills. Understanding of the discharge instructions verbalized by patient. Follow-up with: Yovany Harvey MD, ENT, , [address] [place] [address]; Yovany Arteaga MD, ENT, , [facility], [address] [place] [address] Follow up. Call for an appointment. Reason for referral: Follow up ER visit for tonsillitis. Dr. Arteaga would like you to be seen tomorrow (Tuesday) in [place], or Tuesday at the [facility]. ADDITIONAL INFORMATION Pharyngitis: Strep [Confirmed] Your test for strep throat was positive. Strep throat is a contagious illness. It is spread by coughing, kissing or by touching others after touching your mouth or nose. Symptoms include throat pain which is worse with swallowing, aching all over, headache and fever. You will be treated with an antibiotic which should make you start to feel better within 1-2 days. Home Care: Rest at home and drink plenty of fluids to avoid dehydration. No school or work for the first two days on antibiotics. You will not be contagious after this time and if you are feeling better, you can return to school or work. Take your antibiotics for a full 10 days, even if you feel better after the first few days of treatment. This is very important to prevent heart or kidney disease that can result as a complication of untreated strep throat infection. Children: Use acetaminophen (Tylenol) for fever, fussiness or discomfort. In infants over six months of age, you may use ibuprofen (Children's Motrin) instead of Tylenol. [NOTE: If your child has chronic liver or kidney disease or ever had a stomach ulcer or GI bleeding, talk with your doctor before using these medicines.] (Aspirin should never be used in anyone under 18 years of age who is ill with a fever. It may cause severe liver damage.)Adults: You may use acetaminophen (Tylenol) or ibuprofen (Motrin, Advil) to control pain or fever, unless another medicine was prescribed for this. [NOTE: If you have chronic liver or kidney disease or ever had a stomach ulcer or GI bleeding, talk with your doctor before using these medicines.] Throat lozenges or sprays (Chloraseptic and others) will reduce pain. Gargling with warm salt water will also reduce throat pain. Dissolve 1/2 teaspoon of salt in 1 glass of warm water. This is especially useful just before meals. Follow Up with your doctor or as directed by our staff if you are not improving over the next week. Get Prompt Medical Attention if any of the following occur: Fever of 100.4F (38C) oral or higher, not better with fever medication New or worsening ear pain, sinus pain or headache Painful lumps in the back of your neck Unable to swallow liquids or open your mouth wide due to throat pain Trouble breathing or noisy breathing Muffled voice New rash You have been given the following additional information: Pharyngitis, Strep (Confirmed) (Electronically signed by Melinda Schrader MD 02/14/2017 23:30)
--- NOTE | 2017-02-14 23:31 | ED MED RECONCILIATION SUMMARY ---
Patient: RAFY MAYERS Medication Reconciliation Report [facility] VisitID: [id number] [place] [address] 46y, F Registration Date/Time: 02/13/2017 Weight: 63.5 kg Height/Length: 66 in. BMI: 22.6 ALLERGIES: Codeine, Penicillin The patient's Home Medications are listed below: NONE. The source(s) of the original Home Medication information: Not obtained. The following Medications were given to the patient in the Emergency Department: IV NS IV Fluids bolus 0, then 1000 mL/hr, administered: 02/13/2017 10:12:00 AM Toradol [IVP] IVP 30 mg, administered: 02/13/2017 10:14:00 AM SOLU-MEDROL [IVP] IVP 125 mg, administered: 02/13/2017 11:42:00 AM Dilaudid [IVP] IVP 1 mg, administered: 02/13/2017 11:48:00 AM Rocephin [IVPB] IVPB bolus 0, then 2 gm 100 mL/hr, administered: 02/13/2017 11:48:00 AM Clindamycin [IVPB] IVPB bolus 0, then 900 mg 100 mL/hr, administered: 02/13/2017 11:59:00 AM The following Medications were prescribed to the patient: Hydrocodone / APAP Liquid 7.5mg/325mg/15 mL: take five (5) mL orally every 6 hours as needed for pain. Dispense seventy-five (75) mL. No refill. -- Melinda Schrader MD Clindamycin 300 mg: take 1 capsule orally every 6 hours for 10 days. No refill. -- Melinda Schrader MD Prednisone 20 mg: take 3 orally every day for 5 days. Dispense sufficient quantity. No refills. -- Melinda Schrader MD Prednisone 10 mg tablets: take 4 tablets every day for 3 days ; then take 2 tablets every day for 3 days ; then take 1 tablet every day for 2 days. Dispense sufficient quantity. No refills. -- Melinda Schrader MD
== END 2017-02-13 14:50 | disposition home or self-care (01) ==
LOC: ED SRH 09:15
DX: J03.00 Acute streptococcal tonsillitis, unspecified (principal); J02.0 Streptococcal pharyngitis; Z86.73 Personal history of transient ischemic attack (TIA), and cerebral infarction without residual deficits; Z88.0 Allergy status to penicillin; Z88.5 Allergy status to narcotic agent
CPT/HCPCS: 90074; 95059; 98370